=== PATIENT | male | born 1975 | race Caucasian/White ===

== ENCOUNTER 2017-02-17 17:47 | Emergency (ER) | payer OTHER ==
[2017-02-17 17:56] VITALS: BP 145/89
[2017-02-17] MEDS ORDERED: Clindamycin HCl 150 MG Cap PO ONE (20:20)
--- NOTE | 2017-02-17 20:25 | EDM.PDOC ---
ED HPI GENERAL MEDICAL PROBLEM - General Chief Complaint: Bite:Animal, Insect Stated Complaint: BITE ON PINKY FINGER, [id number] Time Seen by Provider: 02/17/17 20:21 Source of Information: Reports: Patient History Limitations: Reports: No Limitations - History of Present Illness INITIAL COMMENTS - FREE TEXT/NARRATIVE: got bit by wasp last night, now swollen red painful Right 5-Little finger Pain Score (Numeric/FACES): 4 - Related Data Allergies Allergy/AdvReac Type Severity Reaction Status Date / Time No Known Allergies Allergy Verified 02/17/17 18:08 Past Medical History Cardiovascular History: Reports: Hypertension - Past Surgical History HEENT Surgical History: Reports: Tonsillectomy Musculoskeletal Surgical History: Reports: Other (See Below) Other Musculoskeletal Surgeries/Procedures:: Finger surgery, bunions Social & Family History - Tobacco Use Smoking Status *Q: Current Every Day Smoker Years of Tobacco use: 15 Packs/Tins Daily: 0.5 - Caffeine Use Caffeine Use: Reports: Coffee, Energy Drinks, Soda, Tea - Recreational Drug Use Recreational Drug Use: No ED ROS GENERAL - Review of Systems Review Of Systems: ROS reveals no pertinent complaints other than HPI. ED EXAM, ANIMAL BITE - Physical Exam Exam: See Below Exam Limited By: No Limitations General Appearance: Alert, WD/WN, No Apparent Distress Ears: Hearing Grossly Normal Throat/Mouth: Normal Voice, No Airway Compromise Head: Atraumatic Neck: Non-Tender, Full Range of Motion Respiratory/Chest: No Respiratory Distress Cardiovascular: Regular Rate, Rhythm GI/Abdominal: Soft, Non-Tender Extremities: Redness, Other (right 5th cellulitis with minimal lymphangitis. NV wnl) Neurological: Normal Reflexes Psychiatric: Normal Affect, Normal Mood Skin Exam: Normal Color, Warm/Dry Course - Vital Signs Last Recorded V/S: Last Vital Signs Temp 36.8 C 02/17/17 17:55 Pulse 89 02/17/17 17:55 Resp 18 02/17/17 17:55 BP 145/89 H 02/17/17 17:55 Pulse Ox 98 02/17/17 17:55 - Orders/Labs/Meds Orders: Active Orders 24 hr Category Date Time Status Clindamycin HCl [Cleocin] Med 02/17/17 20:20 Once 150 mg PO ONETIME ONE Departure - Departure Time of Disposition: 20:23 Disposition: Home, Self-Care 01 Condition: Good Clinical Impression: Cellulitis Qualifiers: Site of cellulitis: extremity Site of cellulitis of extremity: upper extremity Laterality: right Qualified Code(s): L03.113 - Cellulitis of right upper limb - Discharge Information Instructions: Insect Bite, [id number] Forms: ED Department Discharge Additional Instructions: 1) ice to swelling 2) tylenol or motrin for pain rx given; clindamycin 150mg qid x 40 - My Orders Last 24 Hours: My Active Orders 02/17/17 20:20 Clindamycin HCl [Cleocin] 150 mg PO ONETIME ONE - Assessment/Plan Last 24 Hours: My Active Orders 02/17/17 20:20 Clindamycin HCl [Cleocin] 150 mg PO ONETIME ONE
== END 2017-02-17 20:32 | disposition home or self-care (01) ==
LOC: DL.ED 17:47
DX: L03.113 Cellulitis of right upper limb (principal); I10 Essential (primary) hypertension; F17.210 Nicotine dependence, cigarettes, uncomplicated; Z98.890 Other specified postprocedural states
CPT/HCPCS: 99282; A9270